=== PATIENT | female | born 1930 | race Caucasian/White ===

== ENCOUNTER 2017-01-23 14:56 | Emergency (ER) | payer MEDICARE ==
[~2017-01-23] VITALS: Ht 167.6 cm; Wt 55.8 kg
[2017-01-23] MEDS ORDERED: IV NORMAL SALINE 1,000ML 1,000 ML IV ONE (15:15)
[2017-01-23 15:45] LABS: BASO # 0.1 x10^3/uL (0.0-0.2); BASO % 1 % (0-3); EOS # 0.1 x10^3/uL (0.0-0.7); EOS % 1 % (0-3); HEMATOCRIT 36.6 % (36.0-47.0); HEMOGLOBIN 12.1 g/dL (12.0-15.5); LYMPH # 1.8 x10^3/uL (1.0-4.8); LYMPH % 23 % (24-48); MEAN CORPUSCULAR HEMOGLOBIN 29 pg (25-35); MEAN CORPUSCULAR HGB CONC 33 g/dL (31-37); MEAN CORPUSCULAR VOLUME 87 fL (79-100); MONO % 13 % (0-9); NEUT # 4.9 x10^3uL (1.8-7.7); NEUT % 62 % (31-73); PLATELET COUNT 187 x10^3/uL (140-400); RED CELL DISTRIBUTION WIDTH 13.7 % (11.5-14.5); WHITE BLOOD COUNT 7.9 x10^3/uL (4.0-11.0)
[2017-01-23 16:11] LABS: ALBUMIN 3.5 g/dL (3.4-5.0); ALBUMIN/GLOBULIN RATIO 0.9 (1.0-1.7); CALCIUM 9.1 mg/dL (8.5-10.1); CREATININE 1.2 mg/dL (0.6-1.0); GFR 42.7; POTASSIUM 3.8 mmol/L (3.5-5.1); TOTAL BILIRUBIN 0.5 mg/dL (0.2-1.0); TOTAL PROTEIN 7.4 g/dL (6.4-8.2)
[2017-01-23] MEDS ORDERED: IV NORMAL SALINE 500ML 500 ML IV ONE (16:15)
--- NOTE | 2017-01-23 16:57 | EKG ---
[address] [address] Test Date: 2017-01-23 Test Time: 16:49:31 Pat Name: JOSHUA AMATO Department: Room: Gender: F Stablehand: : 1930 Requested By: CARIDAD JIMENEZ Order Number: [id number] Reading MD: Measurements Intervals [place] Rate: 106 P: 139 IA: 188 QRS: -165 QRSD: 72 T: 165 QT: 320 QTc: 427 Interpretive Statements SINUS TACHYCARDIA ABNORMAL RIGHT SUPERIOR AXIS DEVIATION QRS(T) CONTOUR ABNORMALITY CONSISTENT WITH HIGH LATERAL INFARCT AGE UNDETERMINED T ABNORMALITY IN INFERIOR LEADS ABNORMAL ECG RI6.01 Unconfirmed report Compared to ECG 05/15/2013 09:30:38 Right superior axis now present Myocardial infarct finding now present T-wave abnormality now present Sinus rhythm no longer present Left-axis deviation no longer present
[2017-01-23] MEDS ORDERED: CIPR250T30 PO (17:20)
--- NOTE | 2017-01-23 17:23 | ED.ADGEN ---
Past History Past Medical History: Other Past Surgical History: Appendectomy, Other Alcohol Use: None Drug Use: None Adult General Chief Complaint Chief Complaint Diarrhea, intermittent nausea HPI HPI Patient is a 86 year old female who presents with 1 day of diarrhea. Patient went her pain management doctor was found to have a high heart rate and a moderately low blood pressure. She denies any lightheadedness or dizziness, no chest pain. She's had loose stools multiple times a day. She has been having some difficulty with urination, denies dysuria. She's had intermittent nausea. No fevers. Been drinking cranberry juice and taking Pepto-Bismol. Review of Systems Review of Systems Constitutional: Denies fever or chills [] Eyes: Denies change in visual acuity, redness, or eye pain [] HENT: Denies nasal congestion or sore throat [] Respiratory: Denies cough or shortness of breath [] Cardiovascular: No additional information not addressed in HPI [] GI: Per history of present illness : Denies dysuria or hematuria [] Musculoskeletal: Denies back pain or joint pain [] Integument: Denies rash or skin lesions [] Neurologic: Denies headache, focal weakness or sensory changes [] Endocrine: Denies polyuria or polydipsia [] Current Medications Current Medications Current Medications Medications (Trade) Dose Ordered Sig/[facility] Start Time Stop Time Status Last Admin Dose Admin Sodium Chloride (Iv Sodium Chloride 0.9% 500ml) 500 ml @ 0 mls/hr 1X ONCE 01/23/17 16:15 01/23/17 16:16 UNV 01/23/17 16:15 500 MLS/HR Physical Exam Physical Exam Constitutional: Well developed, well nourished, no acute distress, non-toxic appearance. [] HENT: Normocephalic, atraumatic, bilateral external ears normal, oropharynx moist, no oral exudates, nose normal. [] Eyes: PERRLA, EOMI, conjunctiva normal, no discharge. [] Neck: Normal range of motion, no tenderness, supple, no stridor. [] Cardiovascular:Heart rate tachy with regular rhythm, no murmur [] Lungs & Thorax: Bilateral breath sounds clear to auscultation [] Abdomen: Bowel sounds normal, soft, no tenderness, no masses, no pulsatile masses. [] Skin: Warm, dry, no erythema, no rash. [] Back: No tenderness, no CVA tenderness. [] Extremities: No tenderness, no cyanosis, no clubbing, ROM intact, no edema. [] Neurologic: Alert and oriented X 3, normal motor function, normal sensory function, no focal deficits noted. [] Psychologic: Affect normal, judgement normal, mood normal. [] Current Patient Data Vital Signs Vital Signs Date Time Temp Pulse Resp B/P Pulse Ox O2 Delivery O2 Flow Rate FiO2 01/23/17 15:48 98.0 117 18 94 Room Air Lab Results Laboratory Tests Test 01/23/17 15:28 White Blood Count 7.9x10^3/uL (4.0-11.0) Red Blood Count 4.20x10^6/uL (3.50-5.40) Hemoglobin 12.1g/dL (12.0-15.5) Hematocrit 36.6% (36.0-47.0) Mean Corpuscular Volume 87fL (79-100) Mean Corpuscular Hemoglobin 29pg (25-35) Mean Corpuscular Hemoglobin Concent 33g/dL (31-37) Red Cell Distribution Width 13.7% (11.5-14.5) Platelet Count 187x10^3/uL (140-400) Neutrophils (%) (Auto) 62% (31-73) Lymphocytes (%) (Auto) 23% (24-48) L Monocytes (%) (Auto) 13% (0-9) H Eosinophils (%) (Auto) 1% (0-3) Basophils (%) (Auto) 1% (0-3) Neutrophils # (Auto) 4.9x10^3uL (1.8-7.7) Lymphocytes # (Auto) 1.8x10^3/uL (1.0-4.8) Monocytes # (Auto) 1.0x10^3/uL (0.0-1.1) Eosinophils # (Auto) 0.1x10^3/uL (0.0-0.7) Basophils # (Auto) 0.1x10^3/uL (0.0-0.2) Sodium Level 132mmol/L (136-145) L Potassium Level 3.8mmol/L (3.5-5.1) Chloride Level 98mmol/L (98-107) Carbon Dioxide Level 28mmol/L (21-32) Anion Gap 6 (6-14) Blood Urea Nitrogen 16mg/dL (7-20) Creatinine 1.2mg/dL (0.6-1.0) H Estimated GFR (Cockcroft-Gault) 42.7 BUN/Creatinine Ratio 13 (6-20) Glucose Level 132mg/dL (70-99) H Calcium Level 9.1mg/dL (8.5-10.1) Total Bilirubin 0.5mg/dL (0.2-1.0) Aspartate Amino Transferase (AST) 17U/L (15-37) Alanine Aminotransferase (ALT) 19U/L (14-59) Alkaline Phosphatase 90U/L (46-116) Total Protein 7.4g/dL (6.4-8.2) Albumin 3.5g/dL (3.4-5.0) Albumin/Globulin Ratio 0.9 (1.0-1.7) L EKG EKG [] Radiology/Procedures Radiology/Procedures [] Course & Med Decision Making Course & Med Decision Making Pertinent Labs and Imaging studies reviewed. (See chart for details) Labs reviewed, patient given 500 mL normal saline bolus. Her heart rate remained in the lower 100s. Patient is adamantly requesting to leave. She has leuk esterase in her urine dip. Patient her symptoms, we'll treat with Cipro 250 twice a day for 3 days. Return percussions given, urine culture pending. Final Impression Final Impression Urinary tract infection Diarrhea [] Problems: Dragon Disclaimer Dragon Disclaimer This electronic medical record was generated, in whole or in part, using a voice recognition dictation system. CARIDAD JIMENEZ MD Jan 23, 2017 17:23
[2017-01-23 17:32] LABS: BILIRUBIN,URINE NEG (NEG); CLARITY,URINE CLOUDY; COLOR,URINE YELLOW
[2017-01-23] MEDS ORDERED: HEPARIN PF 500 UNIT/5 ML DISP.SYRIN. IV ONE ×2 (17:32→17:45)
[2017-01-23 17:33] LABS: GLUCOSE,URINE NEG (NEG); NITRITE,URINE NEG (NEG); UROBILINOGEN,URINE 0.2 mg/dL (0.2 mg/dL); WBC,URINE >40 /HPF (0-4)
[2017-01-23 17:34] LABS: BACTERIA,URINE FEW /HPF (0-FEW); SQUAMOUS EPITHELIAL CELL,UR MOD /LPF
[2017-01-23 17:37] VITALS: BP 162/96
== END 2017-01-23 17:45 | disposition home or self-care (01) ==
LOC: ER 14:56
DX: N39.0 Urinary tract infection, site not specified (principal); R19.7 Diarrhea, unspecified; R11.0 Nausea
CPT/HCPCS: 36415; 80053; 81001; 85027; 93005; 96374; 99285; J7040; 96361

== ENCOUNTER → 2017-09-16 | Day surgery (SDC) | payer MEDICARE ==
[~2017-09-16] MED LIST: ALBUTEROL SULFATE 2.5 MG/3 ML NEBU. ONE; BACITRACIN 50,000 UNIT VIAL. ONE; BUPIVACAINE MPF 0.5% 30 ML VIAL. ONE; CIPR250T30 PO; DEXAMETHASONE SOD PHOS 20 MG/5 ML VIAL. ONE; IV RINGERS SOLUTION,LACTATED 1,000 ML IV ONE; LABETALOL 100 MG/20 ML VIAL. IV ONE; LIDOCAINE 1% PF 30 ML VIAL. ONE; LIDOCAINE 2% PF Vial for OR 5 ML VIAL. ONE; ONDANSETRON PF 4 MG/2 ML VIAL. ONE; PHENYLEPHRINE 10 MG/ML VIAL. IV ONE; PROPOFOL 20 ML IV ONE; ROCURONIUM 50 MG/5 ML VIAL. ONE; SUCCINYLCHOLINE 200 MG/10 ML VIAL. ONE; fentaNYL PF 250 MCG/5 ML VIAL ONE
[2017-09-16 12:05] LABS: BASO # 0.1 x10^3/uL (0.0-0.2); BASO % 1 % (0-3); EOS # 0.1 x10^3/uL (0.0-0.7); EOS % 1 % (0-3); HEMATOCRIT 39.8 % (36.0-47.0); LYMPH # 2.4 x10^3/uL (1.0-4.8); LYMPH % 28 % (24-48); MEAN CORPUSCULAR HEMOGLOBIN 28 pg (25-35); MEAN CORPUSCULAR HGB CONC 33 g/dL (31-37); MEAN CORPUSCULAR VOLUME 87 fL (79-100); MONO # 0.9 x10^3/uL (0.0-1.1); MONO % 11 % (0-9); NEUT % 59 % (31-73); PLATELET COUNT 208 x10^3/uL (140-400); WHITE BLOOD COUNT 8.5 x10^3/uL (4.0-11.0)
[2017-09-16 12:15] LABS: BILIRUBIN,URINE NEG (NEG); CLARITY,URINE CLEAR; COLOR,URINE YELLOW; GLUCOSE,URINE NEG (NEG); UROBILINOGEN,URINE 0.2 mg/dL (0.2 mg/dL)
[2017-09-16 12:16] LABS: BACTERIA,URINE 0 /HPF (0-FEW); NITRITE,URINE NEG (NEG); RBC,URINE 0 /HPF (0-2); SQUAMOUS EPITHELIAL CELL,UR OCC /LPF; WBC,URINE RARE /HPF (0-4)
== END | disposition home or self-care (01) ==
LOC: SURG 10:57
PROVIDERS: ATTEND Anesthesiology Pain Medicine
DX: M47.26 Other spondylosis with radiculopathy, lumbar region (principal); M48.061 Spinal stenosis, lumbar region without neurogenic claudication; I10 Essential (primary) hypertension; K21.9 Gastro-esophageal reflux disease without esophagitis; J44.9 Chronic obstructive pulmonary disease, unspecified; Z87.891 Personal history of nicotine dependence
CPT/HCPCS: 36415; 63685; 81001; 85025; 87086; 87641; J0330; J0690; J1100; J2001; J2405; J2704; J3010; J3490; J7120; J7613; L8686

== ENCOUNTER → 2017-12-10 | Outpatient (CLI) | payer MEDICARE ==
[~2017-12-10] MED LIST changes: -ALBUTEROL SULFATE 2.5 MG/3 ML NEBU. ONE; -BACITRACIN 50,000 UNIT VIAL. ONE; -BUPIVACAINE MPF 0.5% 30 ML VIAL. ONE; -DEXAMETHASONE SOD PHOS 20 MG/5 ML VIAL. ONE; -IV RINGERS SOLUTION,LACTATED 1,000 ML IV ONE; -LABETALOL 100 MG/20 ML VIAL. IV ONE; -LIDOCAINE 1% PF 30 ML VIAL. ONE; -LIDOCAINE 2% PF Vial for OR 5 ML VIAL. ONE; -ONDANSETRON PF 4 MG/2 ML VIAL. ONE; -PHENYLEPHRINE 10 MG/ML VIAL. IV ONE; -PROPOFOL 20 ML IV ONE; -ROCURONIUM 50 MG/5 ML VIAL. ONE; -SUCCINYLCHOLINE 200 MG/10 ML VIAL. ONE; -fentaNYL PF 250 MCG/5 ML VIAL ONE
--- NOTE | 2017-12-10 12:21 | RAD ---
Ultrasound abdomen limited 12/10/2017 Clinical indication: Right upper quadrant abdominal pain Comparison: CT abdomen and pelvis 05/12/2013 Findings: Visualized pancreas unremarkable. Visualized upper IVC unremarkable. The visualized hepatic parenchyma is homogeneous echotexture. Right kidney measures 9.2 cm in length without collecting system dilatation or abnormal perinephric fluid collection. There is mild extrahepatic common biliary ductal dilatation measuring 0.8 cm. Gallbladder is nondilated without wall thickening or pericholecystic fluid. There is layering cholelithiasis. Impression: 1. Cholelithiasis without sonographic evidence of acute cholecystitis. 2. Mild extrahepatic biliary ductal dilatation measuring 0.8 cm. If clinically indicated, MRCP could be obtained for evaluation of distal biliary stone or mass.
== END | disposition home or self-care (01) ==
LOC: US 10:41
PROVIDERS: ATTEND Family Medicine
DX: K80.20 Calculus of gallbladder without cholecystitis without obstruction (principal)
CPT/HCPCS: 76705

== ENCOUNTER → 2018-05-21 | Outpatient (CLI) | payer MEDICARE | END | disposition home or self-care (01) | LOC: SURG 11:16 | PROVIDERS: ATTEND Anesthesiology Pain Medicine | DX: M54.16 Radiculopathy, lumbar region (principal); M47.816 Spondylosis without myelopathy or radiculopathy, lumbar region; G89.4 Chronic pain syndrome; F11.90 Opioid use, unspecified, uncomplicated; I10 Essential (primary) hypertension; K21.9 Gastro-esophageal reflux disease without esophagitis; Z87.891 Personal history of nicotine dependence | CPT/HCPCS: 99214 ==

== ENCOUNTER → 2018-07-29 | Outpatient (CLI) | payer MEDICARE | END | disposition home or self-care (01) | LOC: SURG 14:09 | PROVIDERS: ATTEND Anesthesiology Pain Medicine | DX: M54.16 Radiculopathy, lumbar region (principal); M47.816 Spondylosis without myelopathy or radiculopathy, lumbar region; G89.4 Chronic pain syndrome; F11.90 Opioid use, unspecified, uncomplicated; I10 Essential (primary) hypertension; K21.9 Gastro-esophageal reflux disease without esophagitis; J44.9 Chronic obstructive pulmonary disease, unspecified; Z87.891 Personal history of nicotine dependence; Z79.899 Other long term (current) drug therapy; Z85.72 Personal history of non-Hodgkin lymphomas | CPT/HCPCS: 99214 ==

== ENCOUNTER → 2019-10-10 | Outpatient (CLI) | payer MEDICARE ==
--- NOTE | 2019-10-10 16:31 | RAD ---
CT ABDOMEN PELVIS WO CONTRAST Indication: Renal calculi. Exposure: One or more of the following individualized dose reduction techniques were utilized for this examination: 1. Automated exposure control 2. Adjustment of the mA and/or kV according to patient size 3. Use of iterative reconstruction technique. Comparison: None are available. Technique: No intravenous contrast given. No oral contrast per request. Findings: Evaluation of solid viscera, bowel and vasculature is compromised by the noncontrast technique. Coarse and irregular interstitial opacities in both lung bases, most likely due to chronic scarring, although a component of interstitial infiltrate or edema is not excludable. Bronchial wall thickening. Coronary artery calcification. Liver and spleen appear unremarkable. The pancreas is difficult to separate from adjacent unopacified bowel but no definite abnormality. No evidence of adrenal mass. No evidence of hydronephrosis or renal calculus. No evidence of ureteric dilatation or calculus. No evidence of acute perinephric stranding. Gallbladder surgically absent. Aorta calcified and ectatic without gross aneurysm. No significant lymph node enlargement. There is some fluid and gas density in the right upper quadrant, could represent focal dilatation of the duodenum, or a large duodenal diverticulum, measuring about 5.8 cm. Extraluminal fluid collection considered less likely but difficult to determine without oral contrast. No significant small bowel distention. Colonic diverticulosis, without evidence of acute colitis. Mild retained stool throughout the colon. There is ill-defined density or stranding within the central mesenteric fat. No significant pneumoperitoneum or ascites. Urinary bladder is mildly distended without significant wall thickening. No evidence of pelvic mass. 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 Spinal stimulator electrodes are noted in the spinal canal. Degenerative changes at the skeletal pelvis. Density within the right and left sacral ala may be due to prior sacral plasty. Focal lumbar scoliosis. IMPRESSION: 1. No evidence of urinary tract calculus or obstruction. 2. Coarse interstitial markings in lung bases, likely scarring. Acute interstitial infiltrate or edema considered less likely. 3. Fluid and gas collection in the right upper quadrant adjacent to the descending duodenum may represent a large duodenal diverticulum. An extraluminal fluid collection is difficult to exclude without oral contrast but there is no acute appearing inflammatory stranding to suggest an abscess. 4. Ill-defined density or stranding within the central mesenteric fat could just represent scarring or mesenteric edema. Occasionally, this finding can be associated with other processes such as lymphoma, therefore recommend follow-up CT scanning in 3-6 months. Electronically signed by: Delonte Stiles MD (10/10/2019 4:28 PM) [facility]
== END | disposition home or self-care (01) ==
LOC: CT 10:51
PROVIDERS: ATTEND Family Medicine
DX: K57.30 Diverticulosis of large intestine without perforation or abscess without bleeding (principal); J92.9 Pleural plaque without asbestos; I25.10 Atherosclerotic heart disease of native coronary artery without angina pectoris; I77.819 Aortic ectasia, unspecified site; I70.0 Atherosclerosis of aorta; M47.815 Spondylosis without myelopathy or radiculopathy, thoracolumbar region; M48.05 Spinal stenosis, thoracolumbar region; M41.86 Other forms of scoliosis, lumbar region; Z90.49 Acquired absence of other specified parts of digestive tract
CPT/HCPCS: 74176

== ENCOUNTER → 2021-04-09 | Outpatient (CLI) | payer MEDICARE ==
--- NOTE | 2021-04-10 13:10 | CARD ---
MR#: [id number] Date of Study: 04/09/2021 Ordering Physician: SEE BURNS, Referring Physician: SEE BURNS, Tech: Jacqueline Dawn, [facility] APPROVED REPORT EXAM: Two-dimensional and M-mode echocardiogram with Doppler and color Doppler. Other Information Quality : AverageHR: 104bpm INDICATION COPD Dyspnea Chronic Respiratory Failure 2D DIMENSIONS RVDd3.1 (2.9-3.5cm)Left Atrium(2D)3.2 (1.6-4.0cm) IVSd1.2 (0.7-1.1cm)Aortic Root(2D)2.8 (2.0-3.7cm) LVDd3.8 (3.9-5.9cm)LVOT Diameter2.0 (1.8-2.4cm) PWd1.0 (0.7-1.1cm)LVDs2.8 (2.5-4.0cm) FS (%) 26.7 %SV33.2 ml LVEF(%)52.8 (>50%) Aortic Valve AoV Peak Rashad.126.9cm/sAoV VTI22.6cm AO Peak GR.6.4mmHgLVOT Peak Rashad.88.3cm/s LVOT VTI 14.88cmAO Mean GR.4mmHg MORGAN (VMAX)2.43yp0JFP (VTI)2.04cm2 AI P 1/2 Tvac894ip Pulmonary Valve PV Peak Rnyfudxw10.3cm/sPV Peak Grad.3mmHg Tricuspid Valve TR P. [id number]/sRAP [id number] TR Peak Gr.00dcTpQZUR44cmIa LEFT VENTRICLE The left ventricle is normal size. There is borderline to mild concentric left ventricular hypertroph y. The left ventricular systolic function is normal. The Ejection Fraction is 55-60%. There is normal LV segmental wall motion. Transmitral Doppler flow pattern is Grade I-abnormal relaxation pattern. RIGHT VENTRICLE The right ventricle is normal size. There is normal right ventricular wall thickness. The right ventr icular systolic function is normal. ATRIA The left atrium size is normal. The right atrium size is normal. The interatrial septum is intact wit h no evidence for an atrial septal defect or patent foramen ovale as noted on 2-D or Doppler imaging. AORTIC VALVE The aortic valve is normal in structure and function. Doppler and Color Flow revealed mild aortic reg urgitation. There is no significant aortic valvular stenosis. Calculated aortic valve area is 2.1 cm2 with maximum pressure gradient of 7 mmHg and mean pressure gradient of 4 mmHg. MITRAL VALVE The mitral valve is normal in structure and function. There is no evidence of mitral valve prolapse. There is no mitral valve stenosis. Doppler and Color-flow revealed trace mitral regurgitation. TRICUSPID VALVE The tricuspid valve is normal in structure and function. Doppler and Color Flow revealed trace tricus pid regurgitation with an estimated PAP of 33 mmHg. There is no tricuspid valve stenosis. PULMONIC VALVE The pulmonary valve is normal in structure and function. Doppler and Color Flow revealed trace pulmon ic valvular regurgitation. GREAT VESSELS The aortic root is normal in size. The ascending aorta is borderline enlarged measuring 3.5 cm. The I VC is normal in size and collapses >50% with inspiration. PERICARDIAL EFFUSION There is no evidence of significant pericardial effusion. Critical Notification Critical Value: No <Conclusion> The left ventricular systolic function is normal. The Ejection Fraction is 55-60%. There is normal LV segmental wall motion. Mild aortic regurgitation. Trace mitral regurgitation. Trace tricuspid regurgitation with an estimated PAP of 33 mmHg. There is no evidence of significant pericardial effusion. Signed by : Shadi Main, Electronically Approved : 04/10/2021 13:09:48
== END ==
LOC: ECHO 14:01
PROVIDERS: ATTEND Family Medicine
DX: I35.1 Nonrheumatic aortic (valve) insufficiency (principal); I77.810 Thoracic aortic ectasia; J44.9 Chronic obstructive pulmonary disease, unspecified; I51.7 Cardiomegaly; J96.11 Chronic respiratory failure with hypoxia
CPT/HCPCS: 93306